=== PATIENT | female | born 1955 | race Caucasian/White ===

== ENCOUNTER 2019-01-01 08:45 | Day surgery (SDC) | payer OTHER ==
[~2019-01-01 08:45] MED LIST: Lactated Ringers 1,000 ML IV SCH; Propofol 200 MG/20 ML SDV ONE; Sodium Chloride 0.9% 10 ML Syringe FLUSH PRN
[2019-01-01] MEDS ORDERED: Propofol 200 MG/20 ML SDV ONE ×2 (09:36→10:14)
--- NOTE | 2019-01-01 09:36 | PCM.PN ---
- General Info Date of Service: 01/01/19 - Review of Systems Systems Review Comment:: 63-year-old female referred for screening colonoscopy. Her last colon exam was 10 years ago. She denies any recent rectal bleeding. She also denies any known family history of colon cancer. She is medically stable to proceed today. I have reviewed her recent history and physical and no significant changes are noted. I discussed the proposed colonoscopy with the patient. Risks such as but not limited to bleeding and GI injury reviewed. She agrees to proceed. - Patient Data Vitals - Most Recent: Last Vital Signs Temp 97.9 F 01/01/19 09:08 Pulse 52 L 01/01/19 09:08 Resp 18 01/01/19 09:08 BP 135/74 01/01/19 09:08 Pulse Ox 99 01/01/19 09:08 Weight - Most Recent: 90.718 kg Med Orders - Current: Current Medications Lactated Ringer's (Ringers, Lactated) 1,000 mls @ 125 mls/hr IV ASDIRECTED FANNY Last Admin: 01/01/19 09:19 Dose: 125 mls/hr Sodium Chloride (Saline Flush) 10 ml FLUSH ASDIRECTED PRN PRN Reason: Keep Vein Open Discontinued Medications Propofol (Diprivan 20 Ml) Confirm Administered Dose 200 mg .ROUTE .STK-MED ONE Stop: 01/01/19 08:42 - Problem List Review Problem List Initiated/Reviewed/Updated: Yes - Assessment Assessment:: colon cancer screening - Plan Plan:: colonoscopy
--- NOTE | 2019-01-01 10:15 | PCM.OPNOTE ---
- General Post-Op/Procedure Note Date of Surgery/Procedure: 01/01/19 Operative Procedure(s): Colonoscopy with polypectomy Findings: Colon polyps at hepatic flexure Pre Op Diagnosis: Colon cancer screening Post-Op Diagnosis: Colon polyps Anesthesia Technique: MAC Primary Surgeon: Raghavendra Griffin Pathology: Colon polyps EBL in mLs: 0 Complications: None Condition: Good
--- NOTE | 2019-01-01 17:26 | OR ---
Date of Procedure: 01/01/2019 PREOPERATIVE DIAGNOSIS: Colon cancer screening. POSTOPERATIVE DIAGNOSIS: Colon polyps. OPERATION PERFORMED: Colonoscopy with polypectomy. INDICATIONS FOR SURGERY: This 63-year-old female presents today for screening colonoscopy. FINDINGS: At the level of the hepatic flexure, the patient has 2 polyps. These are both semipedunculated polyps, one is 6 mm in diameter and the other is 10 mm in diameter. The remainder of the colon appears normal. DESCRIPTION OF PROCEDURE: The patient was taken to the operating room. She was given intravenous sedation, and with her in the left lateral decubitus position, digital rectal exam was performed showing no rectal masses. The Olympus colonoscope was inserted into the rectum. Retroflexed examination of the rectal canal was performed. The scope was then carefully advanced under direct visualization through the entire length of the colon until the cecum was reached. Cecal acquisition was confirmed by noting the normal internal cecal anatomy including the appendiceal orifice and ileocecal valve. The light was also noted to transilluminate the abdominal wall in the right lower quadrant. During insertion of the scope at the level of the hepatic flexure, the two above- described polyps were identified. These were each removed with a cautery snare and retrieved into a polyp trap. They were submitted as a single specimen. There was no sign of any complication at the polypectomy site. After the cecum had been carefully examined, the scope was slowly withdrawn sequentially re- examining the colonic segments until the entire colon and rectum had been fully examined. The scope was then removed and the patient was taken from the operating room in satisfactory condition. ESTIMATED BLOOD LOSS: 0. COMPLICATIONS: None. PROGNOSIS: Good. GAMA Griffin MD /[id number]
== END 2019-01-01 10:58 | disposition home or self-care (01) ==
LOC: LL.SDS 08:45
PROVIDERS: ATTEND Surgery
DX: D12.3 Benign neoplasm of transverse colon (principal); H66.92 Otitis media, unspecified, left ear; H69.93 Unspecified Eustachian tube disorder, bilateral; Z88.2 Allergy status to sulfonamides
CPT/HCPCS: J2704; J7120

== ENCOUNTER 2022-05-17 10:29 | Day surgery (SDC) | payer MEDICARE, OTHER ==
[~2022-05-17 10:29] MED LIST changes: -Lactated Ringers 1,000 ML IV SCH; +Midazolam 1 MG/ML 2 ML SDV ONE
[2022-05-17] MEDS: Lactated Ringers 1,000 ML IV SCH (10:45)
== END 2022-05-17 12:50 | disposition home or self-care (01) ==
LOC: LL.SDS 10:29
PROVIDERS: ATTEND Surgery
DX: Z12.11 Encounter for screening for malignant neoplasm of colon (principal); E66.9 Obesity, unspecified; Z86.010 Personal history of colon polyps; Z98.890 Other specified postprocedural states; Z88.2 Allergy status to sulfonamides; Z79.899 Other long term (current) drug therapy; Z68.34 Body mass index [BMI] 34.0-34.9, adult
CPT/HCPCS: J2250; J2704; J7120